=== PATIENT | male | born 1965 | race Caucasian/White ===

== ENCOUNTER → 2019-10-10 09:46 | Outpatient (CLI) | payer OTHER, SELFPAY ==
--- NOTE | 2019-10-10 | DI.US.S_ITS ---
PROCEDURE: US EXTREMITY NONVASC LOWER RT INDICATIONS: RIGHT KNEE BELLO CYST TECHNIQUE: Real-time scanning was performed of the right knee area, with image documentation. COMPARISON: None. FINDINGS: No source of pain foun, no Bello's cyst identified. IMPRESSION: Normal examination. Dictated by: Marc Galloway M.D. on 10/10/2019 at 11:02 Approved by: Marc Galloway M.D. on 10/10/2019 at 11:03
== END ==
PROVIDERS: PCP Nurse Practitioner Family; Referring Provider Nurse Practitioner Family; Visit Provider Nurse Practitioner Family
DX: M71.21 Synovial cyst of popliteal space [Baker], right knee (principal)
CPT/HCPCS: 76882

== ENCOUNTER 2020-05-01 08:30 | Outpatient (RCR) | payer OTHER, SELFPAY ==
--- NOTE | 2019-12-07 17:22 | OT.OP.EVAL ---
Visit Care Team Role Provider Type DESMOND Burnett Primary Care Provider Non-Staff Specialty: Medical Address: [address] [facility], [address], [place], [address] Email: Fabrice Becerra MD Attending Provider Non-Staff Referring Provider Specialty: Medical Address: [address] [place] [address], [id number] Email: Occupational Therapy Initial Evaluation OT Outpatient Adult Evaluation Start: 12/07/19 12:27 Freq: Status: Active Protocol: Document 12/07/19 16:51 AMS (Rec: 12/07/19 17:21 AMS [id number]) General Information Visit Start Time 12:30 Visit Stop Time 13:15 Total Visit Minutes 45 Visit Number 07/17 Plan of Care Dates 12/07/19-02/29/20 Insurance Information Workers Compensation Treatment Setting Outpatient Care Note Type Initial Evaluation Referring Physician Fabrice Becerra MD Reason for Referral L middle finger injury Identification Confirmed Yes Therapy Pain Assessment Pain Present Pain Reported Left Finger Scale Used 3-7 Goals Objective Measurements Pain-free goniometer measurements of L 3rd digit: 0 -80 AROM MCPJ; 0-90 PROM MCPJ; 0-5 AROM MCPJ; 0-10 PROM MCPJ ; 0-67 AROM PIPJ; 0-80 PROM PIPJ; 0-60 AROM DIPJ. -25 degrees flex at L 3rd DIPJ at rest; -10 degrees flex w/ PROM . Dynamometer II General Medical Practitioner Strength : Avg 55.33# of force w/ L escrow officer (> 1 SD below the mean); avg 67.67# of force w/ R escrow officer (> 1 SD below the mean). 3 trials were performed. Norms for 55-59 y.o. males = 101.1 + /- 26.7 # of force R escrow officer; 83. 2 +/- 23.4 # of force L escrow officer). Pain Assessment Grid completed and was placed in paper chart. Treatment Education re: use of heat prior to execution of ROM exercises. Instructed in ROM exercises. Short Term Goals 1. Omari will present with increased ability to engage in meaningful activities with active incorporation of the left third digit, as evidenced by indication of 2 or less out of 10 on the Pain Assessment Grid. 2. 0-80 degrees active flex at PIP joint of L 3rd digit. 3. 0-90 degrees active flex at MCP joint of L 3rd digit. Reel Operator Goals 1. Omari will be modified independent with execution of left third digit HEP utilizing provided written and visual instructions from therapist. Assessment/Plan Treatment Assessment Patient is a 54 year-old male referred to outpatient OT for L middle finger injury. Omari is R hand dominant; however, reportedly has relied more on his L hand secondary to R ulnar nerve injury that occurred while he was serving in [employer] 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 PMH: significant for dislocation of L 3rd digit; failed response to x 2 corticosteroid injections for treatment of L 3rd digit trigger finger, thus, surgery was performed. (-) treatment following surgery. Patient goals: increase strength of the L hand/L 3rd digit; reduce pain/discomfort; increase ability to complete heavy work tasks with the left hand with active incorporation of the L 3rd digit. Evaluation findings: Decreased success and ability to engage in meaningful activities with active incorporation of the L 3rd digit; L 3rd digit pain; impaired ROM of the L 3rd digit; decreased bilateral escrow officer strength. Outpatient OT is recommended to address these areas in order to maximize the patient' s ability to successfully engage in meaningful activities with active incorporation of the left 3rd digit/left hand. Comment 12 weeks Treatment Frequency Once a Week Therapeutic Contents Active Range of Motion, Adaptive Equipment Education, Client Education,Home Exercise Program,Joint Protection, Manual Therapy,Education, Neurodevelopment Treatment, Neuromuscular Re-Education, Self-Care,Splinting,Stretching /Flexibility Activities, Therapeutic Activities, Therapeutic Exercises, Modalities Types of Modalities Contrast Bath,E-Stim, Functional Stimulation (FES), Ice Massage,Ultrasound Additional Types of Modalities Heat/Paraffin bath Patient Instruction Home Exercise Program,Plan of Care,Questions/Concerns
--- NOTE | 2019-12-14 10:25 | OT.OP.TRT ---
Visit Care Team Role Provider Type DESMOND Burnett Primary Care Provider Non-Staff Specialty: Medical Address: [address] [facility], [address], [place], [address] Email: Fabrice Becerra MD Attending Provider Non-Staff Referring Provider Specialty: Medical Address: [address] [place] [address] [address], [place], [address] Email: Occupational Therapy Treatment Note OT Outpatient Treatment Note - Adult Start: 12/07/19 12:27 Freq: Status: Active Protocol: Document 12/14/19 10:14 AMS (Rec: 12/14/19 10:25 AMS [id number]) OT Outpatient Adult Treatment Note Session Time Visit Start Time 08:30 Visit Stop Time 09:15 Total Visit Minutes 45 Visit Information Visit Number 08/17 Plan of Care Dates 12/07/19-02/29/20 Setting Treatment Setting Outpatient Care Visit Type Note Type Treatment Note General Information General Information Patient is a 54 year-old male referred to outpatient OT for L middle finger injury. Omari is R hand dominant; however, reportedly has relied more on his L hand secondary to R ulnar nerve injury that occurred while he was serving in [employer]. 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 PMH: significant for dislocation of L 3rd digit; failed response to x 2 corticosteroid injections for treatment of L 3rd digit trigger finger, thus, surgery was performed. (-) treatment following surgery. - Subjective Identification Type Name Identification Reconciled With Medical Record Observations Patient seen 1:1 following CDC guidelines/recommendations. It got sore with the long drive over here. I feel like my coordination is improving per Omari. (+) compliance w/ use of heat which is helping in the morning. No locking occurring; click noted in palm when returning to neutral/ext w/ glides at middle finger. Chief Complaint(s) Restricts - Objective Objective Measurements Please refer to below for progress towards established goals. Short Term Goals 1. Omari will present with increased ability to engage in meaningful activities with active incorporation of the left third digit, as evidenced by indication of 2 or less out of 10 on the Pain Assessment Grid. 2. 0-80 degrees active flex at PIP joint of L 3rd digit. 3. 0-90 degrees active flex at MCP joint of L 3rd digit. Production Clerk Goals 1. Omari will be modified independent with execution of left third digit HEP utilizing provided written and visual instructions from therapist. - Treatment 2 Descriptor Manual/scar tissue massage to L palm. Gentle joint mobs of 3rd digit. 1 Descriptor Ultrasound. 20% duty cycle. 2. 0 w/cm2 to volar palm surface L hand to address inflammation /swelling. Skin intact pre- and post- treatment. Patient denied exacerbation/pain symptoms. Exercises 1 Descriptor HEP/POC. Reviewed tendon gliding exercises and importance of returning to neutral position after execution of a glide (focus on inclusion of flat fist, in addition to other glides). Instructed in flat palm on table and awareness of compensatory strategies. Omari denied questions. - Assessment Patient Response to Treatment Good Rehab Potential Fair Assessment of Improvement Seen 1:1 following CDC recommendations. Diagnoses of L distal phalanx fracture; L mallet finger 12/03/18. Reported compliance w/ splint as per directed by attending physician. (+) compliance with HEP w/ report of improving coordination; 'clicking' noted however, no locking of finger into flexion and/or increase in pain symptoms. Will need to monitor. - Plan Therapy Recommendations Continue with Current Program, Advance per Rehabilitation Protocol
--- NOTE | 2019-12-19 12:09 | OT.OP.TRT ---
Visit Care Team Role Provider Type DESMOND Burnett Primary Care Provider Non-Staff Specialty: Medical Address: [address] [facility], [address], [place], [address] Email: Fabrice Becerra MD Attending Provider Non-Staff Referring Provider Specialty: Medical Address: [address] [place] [address], [place], [address] Email: Occupational Therapy Treatment Note OT Outpatient Treatment Note - Adult Start: 12/07/19 12:27 Freq: Status: Active Protocol: Document 12/19/19 12:01 AMS (Rec: 12/19/19 12:09 AMS [id number]) OT Outpatient Adult Treatment Note Session Time Visit Start Time 09:30 Visit Stop Time 10:20 Total Visit Minutes 50 Visit Information Visit Number 09/14 Plan of Care Dates 12/07/19-02/29/20 Setting Treatment Setting Outpatient Care Visit Type Note Type Treatment Note General Information General Information Patient is a 54 year-old male referred to outpatient OT for L middle finger injury. Omari is R hand dominant; however, reportedly has relied more on his L hand secondary to R ulnar nerve injury that occurred while he was serving in [employer]. 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 PMH: significant for dislocation of L 3rd digit; failed response to x 2 corticosteroid injections for treatment of L 3rd digit trigger finger, thus, surgery was performed. (-) treatment following surgery. - Subjective Identification Type Name Identification Reconciled With Medical Record Observations Patient seen 1:1 following CDC guidelines/recommendations. It is clicking less. I still get tired from doing the exercises that you have me doing. I still have a lot of pain in this joint right here per Omari in (3rd MCP joint). I am having a really hard time with this right knee. Chief Complaint(s) Restricts Patient/Caregiver Compliance with Home Good Exercise Program - Objective Objective Measurements Please refer to below for progress towards established goals. Short Term Goals 1. Omari will present with increased ability to engage in meaningful activities with active incorporation of the left third digit, as evidenced by indication of 2 or less out of 10 on the Pain Assessment Grid. 2. 0-80 degrees active flex at PIP joint of L 3rd digit. 3. 0-90 degrees active flex at MCP joint of L 3rd digit. Assisted Goals 1. Omari will be modified independent with execution of left third digit HEP utilizing provided written and visual instructions from therapist. - Treatment 2 Descriptor Manual/scar tissue massage to L palm. Gentle joint mobs of 3rd digit. 1 Descriptor Ultrasound. 20% duty cycle. 2. 0 w/cm2 to volar surface L hand to address inflammation/ swelling x 8 min. Repeated for volar surface of distal phalanx. Skin intact pre- and post- treatment. Patient denied exacerbation/pain symptoms. Exercises 1 Descriptor HEP/POC. Reviewed tendon gliding exercises. Instructed in wall stretch w/ palm flat on wall w/ wrist/digits in extension, forearm pronated, elbow at end range of extension, and at shoulder height. Education re: monitoring positioning of hands at rest given tendency of 2nd digit to adduct towards 3rd digit; instructed in gentle stretch of 3rd digit radially, as well as to support extension at MCP joint . Omari denied questions. - Assessment Patient Response to Treatment Good Rehab Potential Fair Assessment of Improvement Seen 1:1 following CDC recommendations. Reduction of clicking noted in palm of hand ; still c/o fatigue of the hand w/ current exercises. Continued c/o pain/discomfort in MCP joint and in distal phalance/DIP joint. Advanced HEP and additional education was completed re: joint protection (positioning to monitor). Recommend following- up w/ PCP re: R knee pain. Recommend repeating ROM measurements at time of next session. - Plan Therapy Recommendations Continue with Current Program, Advance per Rehabilitation Protocol Suggested Referrals Primary Care Physician, Physical Therapy Other Referrals Refer back to PCP re: R knee concerns when walking w/
--- NOTE | 2019-12-26 16:36 | OT.OP.TRT ---
Visit Care Team Role Provider Type DESMOND Burnett Primary Care Provider Non-Staff Specialty: Medical Address: [address] [facility], [address], [place], [address] Email: Fabrice Becerra MD Attending Provider Non-Staff Referring Provider Specialty: Medical Address: [address] [place] [address], [place], [address] Email: Occupational Therapy Treatment Note OT Outpatient Treatment Note - Adult Start: 12/07/19 12:27 Freq: Status: Active Protocol: Document 12/26/19 16:18 AMS (Rec: 12/26/19 16:36 AMS [id number]) OT Outpatient Adult Treatment Note Session Time Visit Start Time 09:30 Visit Stop Time 10:15 Total Visit Minutes 50 Visit Information Visit Number 10/15 Plan of Care Dates 12/07/19-02/29/20 Setting Treatment Setting Outpatient Care Visit Type Note Type Treatment Note General Information General Information Patient is a 54 year-old male referred to outpatient OT for L middle finger injury. Omari is R hand dominant; however, reportedly has relied more on his L hand secondary to R ulnar nerve injury that occurred while he was serving in [employer]. 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 PMH: significant for dislocation of L 3rd digit; failed response to x 2 corticosteroid injections for treatment of L 3rd digit trigger finger, thus, surgery was performed. (-) treatment following surgery. - Subjective Identification Type Name Identification Reconciled With Medical Record Observations Patient seen 1:1 following CDC guidelines/recommendations. I have to get my blood work done after this at [facility]. I know we have been focusing on range of motion. What sorts of activities will be able to help strengthen? per Omari. Chief Complaint(s) Restricts Patient/Caregiver Compliance with Home Good Exercise Program - Objective Objective Measurements Please refer to below for progress towards established goals. 12/26/19= 0-73 degrees AROM PIPJ; 0-90 degrees PROM PIPJ (pain-free passive ROM) 0-85 degrees AROM MCPJ Short Term Goals 1. Omari will present with increased ability to engage in meaningful activities with active incorporation of the left third digit, as evidenced by indication of 2 or less out of 10 on the Pain Assessment Grid. 2. 0-80 degrees active flex at PIP joint of L 3rd digit. = 0-73 degrees AROM PIPJ 3. 0-90 degrees active flex at MCP joint of L 3rd digit. = 0-85 degrees AROM MCPJ Group Home Goals 1. Omari will be modified independent with execution of left third digit HEP utilizing provided written and visual instructions from therapist. = 25% met - Treatment 2 Descriptor Gentle joint mobs of 3rd digit . 1 Descriptor Ultrasound. 20% duty cycle. 2. 0 w/cm2 to volar surface L hand to address inflammation/ swelling x 8 min. Skin intact pre- and post- treatment. Patient denied exacerbation/ pain symptoms. Exercises 1 Descriptor HEP/POC. Instructed in strengthening of 3rd digit into extension w/ positioning of forearm in neutral and rubberbands slightly distal to MCP joint; instructed in functional strengthening options relative to cylindrical grasp/spherical grasp. Recommend use of wide width pen for visual feedback to support flexion of IP joints; provided medium firm green theraputty for home use with instruction for focus on flexion/motor planning of fist . Instructed in care of theraputty. Omari denied questions. - Assessment Patient Response to Treatment Good Rehab Potential Fair Assessment of Improvement Seen 1:1 following CDC recommendations. c/o fatigue of the hand w/ current exercises. Improved active ROM of MCP and PIP joints of L 3rd digit; evidenced by performance with goniometer measurements pre-treatment. Decreased stiffness noted w/ movement of L 3rd digit radially. Advanced HEP. Recommend incorporating additional functional strengthening options as tolerated based on feedback w/ current advancements. Home Exercise Program Please refer to treatment section of note for specific details. - Plan Therapy Recommendations Continue with Current Program, Advance per Rehabilitation Protocol
--- NOTE | 2020-01-09 15:49 | OT.OP.TRT ---
Visit Care Team Role Provider Type DESMOND Burnett Primary Care Provider Non-Staff Specialty: Medical Address: [address] [facility], [address], [place], [address] Email: Fabrice Becerra MD Attending Provider Non-Staff Referring Provider Specialty: Medical Address: [address] [place] [address], [place], [address] Email: Occupational Therapy Treatment Note OT Outpatient Treatment Note - Adult Start: 12/07/19 12:27 Freq: Status: Active Protocol: Document 01/09/20 15:37 AMS (Rec: 01/09/20 15:49 AMS [id number]) OT Outpatient Adult Treatment Note Session Time Visit Start Time 09:30 Visit Stop Time 10:18 Total Visit Minutes 48 Visit Information Visit Number 11/14 Plan of Care Dates 12/07/19-02/29/20 Setting Treatment Setting Outpatient Care Visit Type Note Type Treatment Note General Information General Information Patient is a 54 year-old male referred to outpatient OT for L middle finger injury. Omari is R hand dominant; however, reportedly has relied more on his L hand secondary to R ulnar nerve injury that occurred while he was serving in [employer]. 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 PMH: significant for dislocation of L 3rd digit; failed response to x 2 corticosteroid injections for treatment of L 3rd digit trigger finger, thus, surgery was performed. (-) treatment following surgery. - Subjective Identification Type Name Identification Reconciled With Medical Record Observations Patient seen 1:1 following CDC guidelines/recommendations. This finger still gets tired. I have noticed that these fingers start to loosen their fountain operator on the steering wheel after I have been driving awhile per Omari. Chief Complaint(s) Restricts Patient/Caregiver Compliance with Home Good Exercise Program - Objective Objective Measurements Please refer to below for progress towards established goals. 12/26/19= 0-73 degrees AROM PIPJ; 0-90 degrees PROM PIPJ (pain-free passive ROM) 0-85 degrees AROM MCPJ Short Term Goals 1. Omari will present with increased ability to engage in meaningful activities with active incorporation of the left third digit, as evidenced by indication of 2 or less out of 10 on the Pain Assessment Grid. 2. 0-80 degrees active flex at PIP joint of L 3rd digit. = 0-73 degrees AROM PIPJ 3. 0-90 degrees active flex at MCP joint of L 3rd digit. = 0-85 degrees AROM MCPJ Ash Worker Goals 1. Omari will be modified independent with execution of left third digit HEP utilizing provided written and visual instructions from therapist. = 25% met - Treatment 2 Descriptor Gentle joint mobs of 3rd digit . 1 Descriptor Ultrasound. 20% duty cycle. 2. 0 w/cm2 to volar surface L hand to address inflammation/ swelling x 8 min. Skin intact pre- and post- treatment. Patient denied exacerbation/ pain symptoms. Exercises 4 Descriptor Grasp strengthening. 4.4# spherical ball. Grasp and release w/ wrist in ext. 1 x 10. 3 Descriptor Digit strengthening. Isometric hold x 5 sec. Rubberband positioned proximal to PIPJ. 1 x 10. 2nd/3rd digit abd. Rubberband positioned proximal to PIPJ. 1 x 10 each. 2 Descriptor Neuroretraining. Positioning of the 3rd digit of the L hand w/ grasping of objects. 1 Descriptor HEP/POC. Instructed in strengthening away from midline of 2nd and 3rd digits w/ use of rubberbands. Neuro retraining re: positioning of 2nd and 3rd digits during grasping of various objects. Recommended consideration of weighted ball for home use to increase demands on sustained fountain operator if current can/weight becomes too easy; identified w / patient use of 4.4# as best weight for current use. Discussed building up of width of steering wheel as consideration as joint protection principle w/ upcoming driving trip. Oamri denied questions. - Assessment Assessment of Improvement Seen 1:1 following CDC recommendations. c/o hand fatigue. Advanced HEP on this treatment date. Instruction of neuro retraining for fountain operator, as well as strengthening of digits away from ulnar pattern . Discussed joint protection option with use of steering wheel/prolonged fountain operator. Increased focus on strengthening on this treatment date. Will need to monitor symptoms. Recommend incorporating additional functional strengthening options as tolerated based on feedback w/ current advancements. Home Exercise Program Please refer to treatment section of note for specific details. - Plan Therapy Recommendations Continue with Current Program, Advance per Rehabilitation Protocol
--- NOTE | 2020-01-30 10:30 | OT.OP.TRT ---
Visit Care Team Role Provider Type DESMOND Burnett Primary Care Provider Non-Staff Specialty: Medical Address: [address] [facility], [address], [place], [address] Email: Fabrice Becerra MD Attending Provider Non-Staff Referring Provider Specialty: Medical Address: [address] [place] [address], [place], [address] Email: Occupational Therapy Treatment Note OT Outpatient Treatment Note - Adult Start: 12/07/19 12:27 Freq: Status: Active Protocol: Document 01/30/20 10:21 AMS (Rec: 01/30/20 10:30 AMS [id number]) OT Outpatient Adult Treatment Note Session Time Visit Start Time 09:30 Visit Stop Time 10:15 Total Visit Minutes 45 Visit Information Visit Number 12/15 Plan of Care Dates 12/07/19-02/29/20 Setting Treatment Setting Outpatient Care Visit Type Note Type Treatment Note General Information General Information Patient is a 54 year-old male referred to outpatient OT for L middle finger injury. Omari is R hand dominant; however, reportedly has relied more on his L hand secondary to R ulnar nerve injury that occurred while he was serving in [employer]. 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 PMH: significant for dislocation of L 3rd digit; failed response to x 2 corticosteroid injections for treatment of L 3rd digit trigger finger, thus, surgery was performed. (-) treatment following surgery. - Subjective Identification Type Name Identification Reconciled With Medical Record Observations I am seeing my doctor tomorrow. I will get a new referral. Where do I need to bring it? per Omari. I got the weighted ball for use at home. I am still having pain in this joint per Omari relative to the 3rd MCP. Patient/Caregiver Compliance with Home Good Exercise Program - Objective Objective Measurements Please refer to below for progress towards established goals. 12/26/19= 0-73 degrees AROM PIPJ; 0-90 degrees PROM PIPJ (pain-free passive ROM) 0-85 degrees AROM MCPJ Short Term Goals 1. Omari will present with increased ability to engage in meaningful activities with active incorporation of the left third digit, as evidenced by indication of 2 or less out of 10 on the Pain Assessment Grid. 2. 0-80 degrees active flex at PIP joint of L 3rd digit. = 0-73 degrees AROM PIPJ 3. 0-90 degrees active flex at MCP joint of L 3rd digit. = 0-85 degrees AROM MCPJ University Demonstrator Goals 1. Omari will be modified independent with execution of left third digit HEP utilizing provided written and visual instructions from therapist. = 25% met - Treatment 2 Descriptor Gentle joint mobs of 3rd digit . 1 Descriptor Ultrasound. 20% duty cycle. 2. 0 w/cm2 to volar surface L hand to address inflammation/ swelling x 8 min. Skin intact pre- and post- treatment. Patient denied exacerbation/ pain symptoms. Exercises 4 Descriptor Grasp strengthening. 4.4# spherical ball. Grasp and release w/ wrist in ext. 2 x 10. 6# DB attached to dowel. x 7 total reps (DB at bottom of rope --> to top of rope). 3 Descriptor Digit strengthening. 3rd digit abd. 2 rubberbands positioned proximal to PIPJ. 1 x 10. 2 Descriptor Neuroretraining. Positioning of the 3rd digit of the L hand w/ grasping of objects. Right hand assist to facilitate flexion of 3rd digit with other digits. 1 Descriptor HEP/POC. Reviewed building up of width of steering wheel as consideration as joint protection principle w/ upcoming driving trip. Recommended consideration of anti vibration gloves given change of sensation encountered w/ weed eater use for 10 min. Discussed replicating wood dowel w/ rope for working on supervisor unloading strength/ sustained supervisor unloading. Omari denied questions. - Assessment Assessment of Improvement c/o continued pain in 3rd MCP joint of the left hand; denied exacerbation of symptoms from strengthening exercises; recommended following-up w/ referring physician. Advanced HEP on this treatment date. Need for neuro retraining of the 3rd digit w/ grasp; 3rd digit moving into flexion delayed compared to other digits. Recommend incorporating additional functional strengthening options as tolerated. Home Exercise Program Please refer to treatment section of note for specific details. - Plan Therapy Recommendations Continue with Current Program, Advance per Rehabilitation Protocol
--- NOTE | 2020-02-06 14:14 | OT.OP.TRT ---
Visit Care Team Role Provider Type DESMOND Burnett Primary Care Provider Non-Staff Specialty: Medical Address: [address] [facility], [id number], [place], [address] Email: Fabrice Becerra MD Attending Provider Non-Staff Referring Provider Specialty: Medical Address: [address] [place] [address], [place], [address] Email: Occupational Therapy Treatment Note OT Outpatient Treatment Note - Adult Start: 12/07/19 12:27 Freq: Status: Active Protocol: Document 02/06/20 13:59 AMS (Rec: 02/06/20 14:14 AMS [id number]) OT Outpatient Adult Treatment Note Session Time Visit Start Time 09:30 Visit Stop Time 10:15 Total Visit Minutes 45 Visit Information Visit Number 01/14 Plan of Care Dates 12/07/19-02/29/20 Setting Treatment Setting Outpatient Care Visit Type Note Type Treatment Note General Information General Information Patient is a 54 year-old male referred to outpatient OT for L middle finger injury. Omari is R hand dominant; however, reportedly has relied more on his L hand secondary to R ulnar nerve injury that occurred while he was serving in [employer]. 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 PMH: significant for dislocation of L 3rd digit; failed response to x 2 corticosteroid injections for treatment of L 3rd digit trigger finger, thus, surgery was performed. (-) treatment following surgery. - Subjective Identification Type Name Identification Reconciled With Medical Record Observations We had 4 trees that needed to be felled per Omari. I worked with my son. I used my chainsaw for an hour with this hand positioned on the top. I think it is the chainsaw that I did it. Ever since then this joint has been hurting [ re: 3rd MCP joint] per Omari. I haven't been using the ball or the other things because of the pain. I have been doing these exercises per Omari in re: ROM. Patient/Caregiver Compliance with Home Good Exercise Program - Objective Objective Measurements Please refer to below for progress towards established goals. 12/26/19= 0-73 degrees AROM PIPJ; 0-90 degrees PROM PIPJ (pain-free passive ROM) 0-85 degrees AROM MCPJ Short Term Goals 1. Omari will present with increased ability to engage in meaningful activities with active incorporation of the left third digit, as evidenced by indication of 2 or less out of 10 on the Pain Assessment Grid. 2. 0-80 degrees active flex at PIP joint of L 3rd digit. = 0-73 degrees AROM PIPJ 3. 0-90 degrees active flex at MCP joint of L 3rd digit. = 0-85 degrees AROM MCPJ Hedge Trimmer Goals 1. Omari will be modified independent with execution of left third digit HEP utilizing provided written and visual instructions from therapist. = 50% met - Treatment 2 Descriptor Gentle joint mobs of 3rd digit . 1 Descriptor Ultrasound. 20% duty cycle. 2. 0 w/cm2 to volar surface L hand to address inflammation/ swelling x 10 min. Skin intact pre- and post- treatment. Patient denied exacerbation/ pain symptoms. Exercises 4 Descriptor Grasp strengthening. 4.4# spherical ball. Grasp and release w/ wrist in ext. 2 x 10. 6# DB attached to dowel. x 7 total reps (DB at bottom of rope --> to top of rope). 3 Descriptor Digit strengthening. 3rd digit abd. 2 rubberbands positioned proximal to PIPJ. 1 x 10. 2 Descriptor Neuroretraining. Positioning of the 3rd digit of the L hand w/ grasping of objects. Right hand assist to facilitate flexion of 3rd digit with other digits. 1 Descriptor HEP/POC. Discussed use of heat to assist with ROM/ flexibility to maintain available range of motion. Discussed potential use of ice massage and/or contrast baths to address any swelling that may be present in the joint d/ t outdoor tree maintenance. Provided firm blue theraputty for gross grasp strength training; instructed to avoid exercises with pain. Recommended use of green theraputty for abd strengthening of 2nd and 3rd digits of the left hand and 3rd digit extension strengthening versus use of rubberbands given progress pre -tree maintenance that had been made. Recommended focusing on neuro retraining and ROM at this time. Discussed joint protection principles of changing grasp pattern/activities with outdoor lawn maintenance in future. Omari denied questions . - Assessment Assessment of Improvement Referring physician authorized additional visits. Exacerbation of pain in 3rd digit s/p recent use of continuous use of personal chainsaw for hour. Poor tolerance for strengthening exercises on this date. Focus of treatment session on conservative measures for pain management and maintaining available ROM w/ focus on neuro retraining. Education was also provided re: joint protection re: prolonged static grasp patterns w/ recommendation to alt tasks w/ differing grasp patterns. Recommend incorporating additional functional strengthening options as tolerated. Next treatment session will depend on pain presentation. Home Exercise Program Please refer to treatment section of note for specific details. - Plan Therapy Recommendations Continue with Current Program, Advance per Rehabilitation Protocol
--- NOTE | 2020-02-13 10:28 | OT.OP.TRT ---
Visit Care Team Role Provider Type DESMOND Burnett Primary Care Provider Non-Staff Specialty: Medical Address: [address] [facility], [address], [place], [place], Email: Fabrice Becerra MD Attending Provider Non-Staff Referring Provider Specialty: Medical Address: [address] [place] [address], [place], [address] Email: Occupational Therapy Treatment Note OT Outpatient Treatment Note - Adult Start: 12/07/19 12:27 Freq: Status: Active Protocol: Document 02/13/20 10:15 AMS (Rec: 02/13/20 10:28 AMS [id number]) OT Outpatient Adult Treatment Note Session Time Visit Start Time 09:30 Visit Stop Time 10:00 Total Visit Minutes 30 Visit Information Visit Number 02/14 Plan of Care Dates 12/07/19-02/29/20 Setting Treatment Setting Outpatient Care Visit Type Note Type Treatment Note General Information General Information Patient is a 54 year-old male referred to outpatient OT for L middle finger injury. Omari is R hand dominant; however, reportedly has relied more on his L hand secondary to R ulnar nerve injury that occurred while he was serving in [employer]. 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 PMH: significant for dislocation of L 3rd digit; failed response to x 2 corticosteroid injections for treatment of L 3rd digit trigger finger, thus, surgery was performed. (-) treatment following surgery. - Subjective Identification Type Name Identification Reconciled With Medical Record Observations Treatment session was shortened d/t Omari has an appointment scheduled at 1020 w/ orthopedic surgeon for R knee. I feel like that second finger seems to get in the way . The one thing that continues to bother me is the pain per Omari. Patient/Caregiver Compliance with Home Good Exercise Program - Objective Objective Measurements Please refer to below for progress towards established goals. 12/26/19= 0-73 degrees AROM PIPJ; 0-90 degrees PROM PIPJ (pain-free passive ROM) 0-85 degrees AROM MCPJ Short Term Goals 1. Omari will present with increased ability to engage in meaningful activities with active incorporation of the left third digit, as evidenced by indication of 2 or less out of 10 on the Pain Assessment Grid. 2. 0-80 degrees active flex at PIP joint of L 3rd digit. = 0-73 degrees AROM PIPJ 3. 0-90 degrees active flex at MCP joint of L 3rd digit. = 0-85 degrees AROM MCPJ Prison Goals 1. Omari will be modified independent with execution of left third digit HEP utilizing provided written and visual instructions from therapist. = 50% met - Treatment 2 Descriptor Gentle joint mobs of 3rd digit . 1 Descriptor Ultrasound. 20% duty cycle. 2. 0 w/cm2 to volar surface L hand to address inflammation/ swelling x 10 min. Skin intact pre- and post- treatment. Exercises 2 Descriptor Neuroretraining. Positioning of the 3rd digit of the L hand w/ grasping of objects. Trialed kinesiotaping/use of velcro hook/loop of 2nd and 3rd digits together to discourage 'piggy backing of 3rd digit on 2nd digit'. 1 Descriptor HEP/POC. Main concern is pain/ discomfort that continues in 3rd MCP joint. Initiated use of kinesiotape/strapping of 2nd and 3rd digits of the R hand to support alignment w/ neuro re-training. Improvements has been made since initiating neuro re- training; however, will continue to observe this motor pattern when patient is not focused/spontaneous fisting of hand. Recommended utilizing with exercises/activities as able. May need to consider additional options (off-the- shelf, etc). Omari to monitor number of repetitions prior to onset of pain/exacerbation of symptoms. Omari denied questions. - Assessment Assessment of Improvement Patient resported that pain resolved since time of last session likely d/t rest. However, pain continues to be reportedly the most limiting factor for Omari. Improving motor planning of the 3rd digit noted; however, without focused concentration piggy backing as been observed intermittently. Trialed different techniques to support neuro retraining. Will examine number of repetitions until fatigue is reached in the home. Recommend incorporating additional grasping endurance tasks in treatment as tolerated. Home Exercise Program Please refer to treatment section of note for specific details. - Plan Therapy Recommendations Continue with Current Program, Advance per Rehabilitation Protocol
--- NOTE | 2020-02-20 11:39 | OT.OP.TRT ---
Visit Care Team Role Provider Type DESMOND Burnett Primary Care Provider Non-Staff Specialty: Medical Address: [address] [facility], [address], [place], [address] Email: Fabrice Becerra MD Attending Provider Non-Staff Referring Provider Specialty: Medical Address: [address] [place] [address], [place], [address] Email: Occupational Therapy Treatment Note OT Outpatient Treatment Note - Adult Start: 12/07/19 12:27 Freq: Status: Active Protocol: Document 02/20/20 10:24 AMS (Rec: 02/20/20 10:30 AMS [id number]) OT Outpatient Adult Treatment Note Session Time Visit Start Time 09:30 Visit Stop Time 10:15 Total Visit Minutes 45 Visit Information Visit Number 03/17 Plan of Care Dates 12/07/19-02/29/20 Setting Treatment Setting Outpatient Care Visit Type Note Type Treatment Note General Information General Information Patient is a 54 year-old male referred to outpatient OT for L middle finger injury. Omari is R hand dominant; however, reportedly has relied more on his L hand secondary to R ulnar nerve injury that occurred while he was serving in [employer]. 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 PMH: significant for dislocation of L 3rd digit; failed response to x 2 corticosteroid injections for treatment of L 3rd digit trigger finger, thus, surgery was performed. (-) treatment following surgery. - Subjective Identification Type Name Identification Reconciled With Medical Record Observations This hand was sore after pulling the crab pots and driving the boat. The boat's steering wheel is stiffer to turn than a regular steering wheel. I am taking an anti inflammatory still on a daily basis per Omari. The chain saw was definitely the worst pain per Omari. Patient/Caregiver Compliance with Home Good Exercise Program - Objective Objective Measurements Please refer to below for progress towards established goals. 02/20/20= L 3rd digit = 0-73 degrees AROM PIPJ ( increased AROM w/ MCP in flexion); 0-90 degrees AROM MCPJ. 12/26/19= 0-73 degrees AROM PIPJ; 0-90 degrees PROM PIPJ (pain-free passive ROM) 0-85 degrees AROM MCPJ Short Term Goals 1. Omari will present with increased ability to engage in meaningful activities with active incorporation of the left third digit, as evidenced by indication of 2 or less out of 10 on the Pain Assessment Grid. 2. 0-80 degrees active flex at PIP joint of L 3rd digit. = 0-73 degrees AROM PIPJ GOALS MET 0-90 degrees active flex at MCP joint of L 3rd digit. *MET 02/20/20 = 0-90 degrees Coin Machine Collector Supervisor Goals 1. Omari will be modified independent with execution of left third digit HEP utilizing provided written and visual instructions from therapist. = 50% met - Treatment 2 Descriptor Gentle joint mobs of 3rd digit . Facilitation of flexion of PIPU. 1 Descriptor Ultrasound. 20% duty cycle. 2. 0 w/cm2 to volar surface L hand to address inflammation/ swelling x 10 min. Skin intact pre- and post- treatment. Exercises 4 Descriptor Grasp strengthening. 5# DB attached to dowel. x 4 reps w/ forearm pronated; x 4 reps w/ forearm supinated. 2 Descriptor Neuroretraining. 1 Descriptor HEP/POC. Instructed in joint blocking exercise to promote neutral position of MCP w/ active PIP and DIP joint flexion of the 3rd digit. d/t no c/o w/ weighted ball, recommended utilizing available weighted rope to for strengthening of grasp/ improving upon activity tolerance w/ increasing resistance. Recommended utilizing weight/resistance > than that of weighted ball. Omari to monitor length of time until encountering fatigue w/ pulling in crabbing pots. Omari denied questions. - Assessment Assessment of Improvement Improved AROM of L 3rd digit of the MCPJ; met short term goal in this area. Unchanging AROM of the PIPJ w/ MPJ in extension; increased focus on exercises to promote active flexion at the PIP joint of the 3rd digit. Improving neuro retraining/decreased piggy backing of the 2nd digit w/ flexion. However, w/ fatigue piggy backing noted. Decreased endurance/fatigue w/ prolonged grasping activities, incorporation of the 3rd digit. c/o stiffness; main concern verbalized is pain and despite daily use of antiinflammatory medication. Report of no fatigue w/ use of weighted spherical ball; thus , will need to explore additional strengthening options. Recommend incorporating additional grasping endurance tasks in treatment as tolerated; will need to look at activities > 5 minutes in length but less than 2 hours given current reports. Home Exercise Program Please refer to treatment section of note for specific details. - Plan Therapy Recommendations Continue with Current Program, Advance per Rehabilitation Protocol
--- NOTE | 2020-03-13 15:30 | OT.OPPN ---
Current Diagnoses Trigger finger, left middle finger (03/13/20) Unspecified sprain of left middle finger, initial encounter (03/13/20) Occupational Therapy Inpatient Evaluation/Re-Eval OT Outpatient Adult Evaluation Start: 12/07/19 12:27 Freq: Status: Active Protocol: Document 12/07/19 16:51 AMS (Rec: 12/07/19 17:21 AMS [id number]) General Information Session Time Visit Start Time 12:30 Visit Stop Time 13:15 Total Visit Minutes 45 Visit Information Visit Number 07/17 Plan of Care Dates 12/07/19-02/29/20 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 -25 degrees flex at L 3rd DIPJ at rest; -10 degrees flex w/ PROM . Dynamometer II Personnel Technician Strength : Avg 55.33# of force w/ L supervisor grounds (> 1 SD below the mean); avg 67.67# of force w/ R supervisor grounds (> 1 SD below the mean). 3 trials were performed. Norms for 55-59 y.o. males = 101.1 + /- 26.7 # of force R supervisor grounds; 83. 2 +/- 23.4 # of force L supervisor grounds). Pain Assessment Grid completed and was placed in paper chart. Treatment Treatment Education re: use of heat prior to execution of ROM exercises. Instructed in ROM exercises. Short Term Goals Short Term Goals 1. Omari will present with increased ability to engage in meaningful activities with active incorporation of the left third digit, as evidenced by indication of 2 or less out of 10 on the Pain Assessment Grid. 2. 0-80 degrees active flex at PIP joint of L 3rd digit. 3. 0-90 degrees active flex at MCP joint of L 3rd digit. Jail Goals Central Office Mechanic Goals 1. Omari will be modified independent with execution of left third digit HEP utilizing provided written and visual instructions from therapist. Assessment/Plan Assessment Treatment Assessment Patient is a 54 year-old male referred to outpatient OT for L middle finger injury. Omari is R hand dominant; however, reportedly has relied more on his L hand secondary to R ulnar nerve injury that occurred while he was serving in [employer]. 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 PMH: significant for dislocation of L 3rd digit; failed response to x 2 corticosteroid injections for treatment of L 3rd digit trigger finger, thus, surgery was performed. (-) treatment following surgery. Patient goals: increase strength of the L hand/L 3rd digit; reduce pain/discomfort; increase ability to complete heavy work tasks with the left hand with active incorporation of the L 3rd digit. Evaluation findings: Decreased success and ability to engage in meaningful activities with active incorporation of the L 3rd digit; L 3rd digit pain; impaired ROM of the L 3rd digit; decreased bilateral supervisor grounds strength. Outpatient OT is recommended to address these areas in order to maximize the patient' s ability to successfully engage in meaningful activities with active incorporation of the left 3rd digit/left hand. Plan Comment 12 weeks Treatment Frequency Once a Week Therapeutic Contents Active Range of Motion, Adaptive Equipment Education, Client Education,Home Exercise Program,Joint Protection, Manual Therapy,Education, Neurodevelopment Treatment, Neuromuscular Re-Education, Self-Care,Splinting,Stretching /Flexibility Activities, Therapeutic Activities, Therapeutic Exercises, Modalities Types of Modalities Contrast Bath,E-Stim, Functional Stimulation (FES), Ice Massage,Ultrasound Additional Types of Modalities Heat/Paraffin bath Patient Instruction Home Exercise Program,Plan of Care,Questions/Concerns Sensory Assessment Sensory Profile2 Functional Wrist/Hand Scan Hand Side OT Outpatient Treatment Note - Adult Start: 12/07/19 12:27 Freq: Status: Active Protocol: Document 03/13/20 15:30 [facility] (Rec: 03/14/20 09:18 [facility] [id number]) OT Outpatient Adult Treatment Note Session Time Visit Start Time 08:30 Visit Stop Time 09:15 Total Visit Minutes 45 Visit Information Visit Number 04/16 Plan of Care Dates 02/29/20-05/23/20 Setting Treatment Setting Outpatient Care Visit Type Note Type Progress Note General Information General Information Patient is a 54 year-old male referred to outpatient OT for L middle finger injury. Omari is R hand dominant; however, reportedly has relied more on his L hand secondary to R ulnar nerve injury that occurred while he was serving in [employer]. 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 PMH: significant for dislocation of L 3rd digit; failed response to x 2 corticosteroid injections for treatment of L 3rd digit trigger finger, thus, surgery was performed. (-) treatment following surgery. - Subjective Identification Type Name Identification Reconciled With Medical Record Observations Omari completed Pain Assessment Grid; he indicated 3-7/8 range relative to dorsal DIP and MCP joints and volar proximal 3rd metacarpal and MCP and DIP joints. Increased pain/discomfort reported w/ extended use of the L hand w/ various tasks. Patient/Caregiver Compliance with Home Good Exercise Program - Objective Objective Measurements Please refer to below for progress towards established goals. 03/13/20= 0-80 degrees AROM PIPJ w/ MCP in neutral. = L 3rd digit = 0-73 degrees AROM PIPJ (increased AROM w/ MCP in flexion); 0-90 degrees AROM MCPJ. 12/26/19= 0-73 degrees AROM PIPJ; 0-90 degrees PROM PIPJ (pain-free passive ROM) 0-85 degrees AROM MCPJ Short Term Goals 1. Omari will present with increased ability to engage in meaningful activities with active incorporation of the left third digit, as evidenced by indication of 2 or less out of 10 on the Pain Assessment Grid. 03/13/20= 25% met 2. 0-90 degrees active flex at PIP joint of L 3rd digit. = GOAL UPGRADED 3. Omari will present with increased ability to maintain supervisor grounds on an object with inclusion of 3rd, 4th and 5th digits; this will be evidenced by Omari' ability to sustain grasp on arm bike hand x 8 minutes without complaints of pain/discomfort (shooting pain /discomfort w/ need to shake hand). 03/13/20= NEW GOAL GOALS MET 0-90 degrees active flex MCPJ L 3rd digit. *MET 02/20/20 = 0- 90 degrees 0-80 degrees active flex at PIP joint of L 3rd digit. * MET 03/13/20= 0-80 degrees active flex PIPJ L 3rd digit. Jail Goals 1. Omari will be modified independent with execution of left third digit HEP utilizing provided written and visual instructions from therapist. = 50% met - Treatment 2 Descriptor Gentle joint mobs of 3rd digit . Facilitation of flexion of PIPU. 1 Descriptor Ultrasound. 20% duty cycle. 2. 0 w/cm2 to volar surface L hand to address inflammation/ swelling x 10 min. Skin intact pre- and post- treatment. Exercises 4 Descriptor Grasp strengthening. 5# DB attached to dowel. x 4 reps w/ forearm pronated; x 4 reps w/ forearm supinated. 3 Descriptor Strengthening of digits/grasp. 4.4# spherical ball. Focus on grasp/release L hand w/ 3rd, 4th and 5th digits actively engaged. 2 x 10. 2 Descriptor Neuroretraining. 1 Descriptor HEP/POC. Instructed in joint blocking exercise to promote neutral position of MCP w/ active PIP and DIP joint flexion of the 3rd digit. d/t no c/o w/ weighted ball, recommended utilizing available weighted rope to for strengthening of grasp/ improving upon activity tolerance w/ increasing resistance. Recommended utilizing weight/resistance > than that of weighted ball. Omari to monitor length of time until encountering fatigue w/ pulling in crabbing pots. Omari denied questions. - Assessment Assessment of Improvement Omari has made progress over the last certification period relative to active range of motion of the L third digit; this is evidenced by Omari meeting short term goals in this area. Omari is also demonstrating improving neuro retraining w/ active engagement of 3rd digit w/ functional grasp patterns. Omari is demonstrating improving joint protection awareness and strengthening out of a ulnar pattern of the 2nd and 3rd digits. Omari however, continues to complain of pain/discomfort of the 3rd digit which limits his ability to maintain/sustain a grasp on objects for prolonged periods of time (e.g., pulling up crab pots, grasping of steering wheel). In treatment, Omari was able to maintain grasp of handle of UEB for 6 minutes prior to needing to 'shake' his hand d/ t pain/discomfort of the 3rd digit. 'Piggy backing' of 3rd digit on 2nd digit noted w/ fatigue as well w/ sustained grasp and/or increased use/ repetitions w/ hand. Omari was also observed to rely on 2nd digit w/ sustained grasps; thus, increased focus on strengthening of ulnar side of hand w/ HEP. Omari will be following up w/ new physician re: LNI claim on the . Continued outpatient OT is recommended at this time to maximize Omari' ability to engage in meaningful activities with active inclusion of the L hand; he continues to be limited by pain/discomfort. It has been recommended he follows-up w/ his physician given that education has been completed on conservative therapeutic measures to address pain/ discomfort and he reports actively utilizing these strategies. Home Exercise Program Please refer to treatment section of note for specific details. - Plan Therapy Recommendations Continue with Current Program, Advance per Rehabilitation Protocol Comment 12 weeks Comment 1-2 times per week Therapeutic Contents Active Range of Motion, Adaptive Equipment Education, Client Education,Cognitive Skills Development,Functional Activities,Home Exercise Program,Joint Protection, Manual Therapy,Education, Neurodevelopment Treatment, Neuromuscular Re-Education, Self-Care,Stretching/ Flexibility Activities, Therapeutic Activities, Therapeutic Exercises, Modalities,Sensory Re- education Types of Modalities Contrast Bath,E-Stim, Functional Stimulation (FES), Ice Massage,T.E.N. Stimulation ,TENS Placement/Application, Ultrasound Additional Types of Modalities Heat
--- NOTE | 2020-03-19 10:23 | OT.OP.TRT ---
Visit Care Team Role Provider Type DESMOND Burnett Primary Care Provider Non-Staff Specialty: Medical Address: [address] [facility], [address], [place], [address] Email: Fabrice Becerra MD Attending Provider Non-Staff Referring Provider Specialty: Medical Address: [address] [place] [address], [place], [address] Email: Occupational Therapy Treatment Note OT Outpatient Treatment Note - Adult Start: 12/07/19 12:27 Freq: Status: Active Protocol: Document 03/19/20 09:37 AMS (Rec: 03/19/20 10:23 AMS [id number]) OT Outpatient Adult Treatment Note Session Time Visit Start Time 08:30 Visit Stop Time 09:15 Total Visit Minutes 45 Visit Information Visit Number 11/14 Plan of Care Dates 02/29/20-05/23/20 Setting Treatment Setting Outpatient Care Visit Type Note Type Treatment Note General Information General Information Patient is a 54 year-old male referred to outpatient OT for L middle finger injury. Omari is R hand dominant; however, reportedly has relied more on his L hand secondary to R ulnar nerve injury that occurred while he was serving in [employer]. 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 PMH: significant for dislocation of L 3rd digit; failed response to x 2 corticosteroid injections for treatment of L 3rd digit trigger finger, thus, surgery was performed. (-) treatment following surgery. - Subjective Identification Type Name Identification Reconciled With Medical Record Patient/Caregiver Compliance with Home Good Exercise Program - Objective Objective Measurements Please refer to below for progress towards established goals. 03/13/20= 0-80 degrees AROM PIPJ w/ MCP in neutral. = L 3rd digit = 0-73 degrees AROM PIPJ (increased AROM w/ MCP in flexion); 0-90 degrees AROM MCPJ. 12/26/19= 0-73 degrees AROM PIPJ; 0-90 degrees PROM PIPJ (pain-free passive ROM) 0-85 degrees AROM MCPJ Short Term Goals 1. Omari will present with increased ability to engage in meaningful activities with active incorporation of the left third digit, as evidenced by indication of 2 or less out of 10 on the Pain Assessment Grid. 03/13/20= 25% met 2. 0-90 degrees active flex at PIP joint of L 3rd digit. = GOAL UPGRADED 3. Omari will present with increased ability to maintain objective c developer on an object with inclusion of 3rd, 4th and 5th digits; this will be evidenced by Omari' ability to sustain grasp on arm bike hand x 8 minutes without complaints of pain/discomfort (shooting pain /discomfort w/ need to shake hand). 03/19/20= 50% met; x 7 minutes GOALS MET 0-90 degrees active flex MCPJ L 3rd digit. *MET 02/20/20 = 0- 90 degrees 0-80 degrees active flex at PIP joint of L 3rd digit. * MET 03/13/20= 0-80 degrees active flex PIPJ L 3rd digit. Group Home Goals 1. Omari will be modified independent with execution of left third digit HEP utilizing provided written and visual instructions from therapist. = 50% met - Treatment 2 Descriptor Gentle joint mobs of 3rd digit . Facilitation of flexion of PIPU. 1 Descriptor Ultrasound. 20% duty cycle. 2. 0 w/cm2 to volar surface L hand to address inflammation/ swelling x 10 min. Skin intact pre- and post- treatment. Exercises 3 Descriptor Strengthening of digits/grasp. 4.4# spherical ball. Focus on grasp/release L hand w/ 3rd, 4th and 5th digits actively engaged. 2 x 10. 2# longitudinal weight/velcro weights. Sustained objective c developer 3 sec. 2 x 5 sec. 3rd, 4th, and 5th digits L hand. 4.4# spherical ball. Toss & catch L hand. 2 x 10 seated. 1.5# digiflex. 1 x 5. Discomfort of 3rd digit; thus, focus on 4th and 5th digits of L hand. 2 Descriptor Neuroretraining. 1 Descriptor HEP/POC. 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 Inquired about availability of velcro weight to support carry-over of sustained grasp (tighter objective c developer than isolated digits w/ spherical ball). Instructed in flexor stretch utilizing wall ; discussed options including elbow flexion/changing of height of position of palm/ hand on wall. Omari denied questions. - Assessment Assessment of Improvement Omari continues to complain of pain/discomfort of the 3rd digit which limits his ability to maintain/sustain a grasp on objects for prolonged periods of time (e.g., pulling up crab pots, grasping of steering wheel). Upgraded therapeutic exercises/ activities completed in treatment session. (+) activity modification w/ support of his . (+) carry -over of home recommendations. Continued outpatient OT is recommended at this time to maximize Omari' ability to engage in meaningful activities with active inclusion of the L hand; he continues to be limited by pain/discomfort. It has been recommended he follows-up w/ his physician given that education has been completed on conservative therapeutic measures to address pain/ discomfort and he reports actively utilizing these strategies. Home Exercise Program Please refer to treatment section of note for specific details. - Plan Therapy Recommendations Continue with Current Program, Advance per Rehabilitation Protocol
--- NOTE | 2020-03-26 12:10 | OT.OP.TRT ---
Visit Care Team Role Provider Type DESMOND Burnett Primary Care Provider Non-Staff Specialty: Medical Address: [address] [facility], [address], [place], [address] Email: Fabrice Becerra MD Attending Provider Non-Staff Referring Provider Specialty: Medical Address: [address] [place] [address], [id number] Email: Occupational Therapy Treatment Note OT Outpatient Treatment Note - Adult Start: 12/07/19 12:27 Freq: Status: Active Protocol: Document 03/26/20 11:47 AMS (Rec: 03/26/20 12:10 AMS [id number]) OT Outpatient Adult Treatment Note Session Time Visit Start Time 08:30 Visit Stop Time 09:15 Total Visit Minutes 45 Visit Information Visit Number 12/15 Plan of Care Dates 02/29/20-05/23/20 Setting Treatment Setting Outpatient Care Visit Type Note Type Treatment Note General Information General Information Patient is a 54 year-old male referred to outpatient OT for L middle finger injury. Omari is R hand dominant; however, reportedly has relied more on his L hand secondary to R ulnar nerve injury that occurred while he was serving in [employer]. 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 PMH: significant for dislocation of L 3rd digit; failed response to x 2 corticosteroid injections for treatment of L 3rd digit trigger finger, thus, surgery was performed. (-) treatment following surgery. - Subjective Identification Type Name Identification Reconciled With Medical Record Observations I was using my saw for a hour before it . My hand is really sore from that. It just is really tight and hurts in that joint per Omari in re: 3rd MCPJ. Patient/Caregiver Compliance with Home Good Exercise Program - Objective Objective Measurements Please refer to below for progress towards established goals. 03/13/20= 0-80 degrees AROM PIPJ w/ MCP in neutral. = L 3rd digit = 0-73 degrees AROM PIPJ (increased AROM w/ MCP in flexion); 0-90 degrees AROM MCPJ. 12/26/19= 0-73 degrees AROM PIPJ; 0-90 degrees PROM PIPJ (pain-free passive ROM) 0-85 degrees AROM MCPJ Short Term Goals 1. Omari will present with increased ability to engage in meaningful activities with active incorporation of the left third digit, as evidenced by indication of 2 or less out of 10 on the Pain Assessment Grid. 03/13/20= 25% met 2. 0-90 degrees active flex at PIP joint of L 3rd digit. = GOAL UPGRADED 3. Omari will present with increased ability to maintain mental health professional on an object with inclusion of 3rd, 4th and 5th digits; this will be evidenced by Omari' ability to sustain grasp on arm bike hand x 8 minutes without complaints of pain/discomfort (shooting pain /discomfort w/ need to shake hand). 03/26/20= 50% met; x 7 minutes GOALS MET 0-90 degrees active flex MCPJ L 3rd digit. *MET 02/20/20 = 0- 90 degrees 0-80 degrees active flex at PIP joint of L 3rd digit. * MET 03/13/20= 0-80 degrees active flex PIPJ L 3rd digit. Senior Living Goals 1. Omari will be modified independent with execution of left third digit HEP utilizing provided written and visual instructions from therapist. = 50% met - Treatment 1 Descriptor Ultrasound. 20% duty cycle. 2. 0 w/cm2 to volar surface L hand to address inflammation/ swelling x 10 min. Skin intact pre- and post- treatment. Exercises 4 Descriptor Manual therapy by therapist. Addressed ROM limitations of joints of 3rd digit of the L hand. 3 Descriptor Strengthening of digits/grasp. 3.3# spherical ball. 4.4# spherical ball. Toss & catch L hand. 2 x 10 seated w/ each weight. N/A 03/26/20 4.4# spherical ball. Focus on grasp/release L hand w/ 3rd, 4th and 5th digits actively engaged. 2 x 10. 2# longitudinal weight/velcro weights. Sustained mental health professional 3 sec. 2 x 5 sec. 3rd, 4th, and 5th digits L hand. 1.5# digiflex. 1 x 5. Discomfort of 3rd digit; thus, focus on 4th and 5th digits of L hand. 2 Descriptor Neuroretraining. 1 Descriptor HEP/POC. Reviewed current home exercise program; reviewed strengthening of 2nd digit and 3rd digit away from ulnar drift pattern utilizing theraputty (has blue and green theraputty for use in the home). Reviewed distal UE stretches; joint protection education was completed relative to stretching 3rd digit (discussed use of ball as an alternative to wall versus passive stretch). Recommended continuing to utilize weighted ball for strengthening of ulnar side of hand; recommended continuation of neuro re- training and maintaining available ROM. Omari denied questions. - Assessment Assessment of Improvement Omari has follow-up w/ his PCP on . Omari reports limitations secondary to pain/ discomfort primarily of the 3rd digit of the left hand. He responded positively to ultrasound and manual therapy for ROM to the joints of the 3rd digit. He continues to present with left hand weakness which leads to altering of grasp of various sized objects. Review of HEP completed with focus on joint protection primarily with stretching of 3rd digit into extension. (+) carry-over of home recommendations. Continued outpatient OT is recommended at this time to maximize Omari' ability to engage in meaningful activities with active inclusion of the L hand; he continues to be limited by pain/discomfort. It has been recommended he follows-up w/ his physician given that education has been completed on conservative therapeutic measures to address pain/ discomfort and he reports actively utilizing these strategies. Home Exercise Program Please refer to treatment section of note for specific details. - Plan Therapy Recommendations Continue with Current Program, Advance per Rehabilitation Protocol
--- NOTE | 2020-04-02 11:51 | OT.OP.TRT ---
Visit Care Team Role Provider Type DESMOND Burnett Primary Care Provider Non-Staff Specialty: Medical Address: [address] [facility], [address], [place], [address] Email: Fabrice Becerra MD Attending Provider Non-Staff Referring Provider Specialty: Medical Address: [address] [place] [address], [place], [address] Email: Occupational Therapy Treatment Note OT Outpatient Treatment Note - Adult Start: 12/07/19 12:27 Freq: Status: Active Protocol: Document 04/02/20 09:27 AMS (Rec: 04/02/20 09:31 AMS [id number]) OT Outpatient Adult Treatment Note Session Time Visit Start Time 08:30 Visit Stop Time 09:17 Total Visit Minutes 47 Visit Information Visit Number 01/14 Plan of Care Dates 02/29/20-05/23/20 Setting Treatment Setting Outpatient Care Visit Type Note Type Treatment Note General Information General Information Patient is a 54 year-old male referred to outpatient OT for L middle finger injury. Omari is R hand dominant; however, reportedly has relied more on his L hand secondary to R ulnar nerve injury that occurred while he was serving in [employer]. 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 PMH: significant for dislocation of L 3rd digit; failed response to x 2 corticosteroid injections for treatment of L 3rd digit trigger finger, thus, surgery was performed. (-) treatment following surgery. - Subjective Identification Type Name Identification Reconciled With Medical Record Observations I feel that there is still weakness. I wish the pain would go away. It is always there but then I get the shooting pain which makes have to let go per Omari. I hurt this ankle per Omari. Patient/Caregiver Compliance with Home Excellent Exercise Program - Objective Objective Measurements Please refer to below for progress towards established goals. 03/13/20= 0-80 degrees AROM PIPJ w/ MCP in neutral. = L 3rd digit = 0-73 degrees AROM PIPJ (increased AROM w/ MCP in flexion); 0-90 degrees AROM MCPJ. 12/26/19= 0-73 degrees AROM PIPJ; 0-90 degrees PROM PIPJ (pain-free passive ROM) 0-85 degrees AROM MCPJ Short Term Goals 1. Omari will present with increased ability to engage in meaningful activities with active incorporation of the left third digit, as evidenced by indication of 2 or less out of 10 on the Pain Assessment Grid. 03/13/20= 25% met 2. 0-90 degrees active flex at PIP joint of L 3rd digit. = 25% met 3. 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 04/02/20= 75% met; x 8 min. However c/o pain/ discomfort in hand & wanting to let go GOALS MET 0-90 degrees active flex MCPJ L 3rd digit. *MET 02/20/20 = 0- 90 degrees 0-80 degrees active flex at PIP joint of L 3rd digit. * MET 03/13/20= 0-80 degrees active flex PIPJ L 3rd digit. Longterm Goals 1. Omari will be modified independent with execution of left third digit HEP utilizing provided written and visual instructions from therapist. = 50% met - Treatment 1 Descriptor Ultrasound. 20% duty cycle. 2. 0 w/cm2 to volar surface L hand to address inflammation/ swelling x 10 min. Skin intact pre- and post- treatment. Exercises 6 Descriptor Finger flex. TB #3. 1x10. Finger ext combined w/ digit ext. TB #2. 1x10. Finger abd. TB #1. 1x5. 5 Descriptor UEB x 8 minutes 4 Descriptor Manual therapy by therapist. Addressed ROM limitations of joints of 3rd digit of the L hand. 3 Descriptor Strengthening of digits/grasp. 5.5# spherical ball. Toss & catch L hand. 2 x 10 seated w/ each weight. N/A 03/26/20 4.4# spherical ball. Focus on grasp/release L hand w/ 3rd, 4th and 5th digits actively engaged. 2 x 10. 2# longitudinal weight/velcro weights. Sustained water service supervisor 3 sec. 2 x 5 sec. 3rd, 4th, and 5th digits L hand. 1.5# digiflex. 1 x 5. Discomfort of 3rd digit; thus, focus on 4th and 5th digits of L hand. 2 Descriptor Neuroretraining. 1 Descriptor HEP/POC. Reviewed current home exercise program. Provided extra firm alfred theraputty for home use. Education re: importance of monitoring joint alignment. Provided w/ TB# 1, #2, and #3 to utilize with upgraded finger strengthening exercises (finger flex, finger ext, and finger abd). Discussed modifications to support ability to complete exercises (tying TB around table). Omari denied questions . - Assessment Assessment of Improvement Omari has follow-up w/ PCP on . Per outpatient clinic licensed insurance agent, Omari only has 2 visits left based on the 'hard date' of insurance auth and that a new prescription would be needed by his PCP to extend services past the date. special education curriculum specialist indicated that she conveyed this information to Omari. Advanced strengthening exercises in treatment session and for home carry-over. (+) carry-over of home recommendations. Continued outpatient OT is recommended at this time to maximize Omari' ability to engage in meaningful activities with active inclusion of the L hand; he continues to be limited by pain/discomfort. It has been recommended he follows-up w/ his physician given that education has been completed on conservative therapeutic measures to address pain/ discomfort and he reports actively utilizing these strategies. Home Exercise Program Please refer to treatment section of note for specific details. - Plan Therapy Recommendations Continue with Current Program, Advance per Rehabilitation Protocol Additional Therapy Recommendations Adjust based on MD feedback
--- NOTE | 2020-04-09 12:39 | OT.OP.TRT ---
Visit Care Team Role Provider Type DESMOND Burnett Primary Care Provider Non-Staff Specialty: Medical Address: [address] [facility], [address], [place], [address] Email: Fabrice Becerra MD Attending Provider Non-Staff Referring Provider Specialty: Medical Address: [address] [place] [address], [place], [address] Email: Occupational Therapy Treatment Note OT Outpatient Treatment Note - Adult Start: 12/07/19 12:27 Freq: Status: Active Protocol: Document 04/09/20 12:23 AMS (Rec: 04/09/20 12:39 AMS [id number]) OT Outpatient Adult Treatment Note Session Time Visit Start Time 08:30 Visit Stop Time 09:15 Total Visit Minutes 45 Visit Information Visit Number 02/14 Plan of Care Dates 02/29/20-05/23/20 Setting Treatment Setting Outpatient Care Visit Type Note Type Treatment Note General Information General Information Patient is a 54 year-old male referred to outpatient OT for L middle finger injury. Omari is R hand dominant; however, reportedly has relied more on his L hand secondary to R ulnar nerve injury that occurred while he was serving in [employer]. 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 PMH: significant for dislocation of L 3rd digit; failed response to x 2 corticosteroid injections for treatment of L 3rd digit trigger finger, thus, surgery was performed. (-) treatment following surgery. - Subjective Identification Type Name Identification Reconciled With Medical Record Observations I think I overworked this hand on Thursday. I did some sawing, used a crank, and did lots of other odds and ends. Yesterday I just rested and used ice for the hand. I woke up and it was really stiff this morning. It is really sore in this joint [3rd MCPJ] per Omari. My doctor wanted me to do the 5 visits and then he was going to make his rating then for this hand. He suggested anti-vibration tape and anti-vibration gloves per Omari. Patient/Caregiver Compliance with Home Excellent Exercise Program - Objective Objective Measurements Please refer to below for progress towards established goals. 03/13/20= 0-80 degrees AROM PIPJ w/ MCP in neutral. = L 3rd digit = 0-73 degrees AROM PIPJ (increased AROM w/ MCP in flexion); 0-90 degrees AROM MCPJ. 12/26/19= 0-73 degrees AROM PIPJ; 0-90 degrees PROM PIPJ (pain-free passive ROM) 0-85 degrees AROM MCPJ Short Term Goals 1. Omari will present with increased ability to engage in meaningful activities with active incorporation of the left third digit, as evidenced by indication of 2 or less out of 10 on the Pain Assessment Grid. 03/13/20= 25% met 2. 0-90 degrees active flex at PIP joint of L 3rd digit. = 25% met 3. 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 04/09/20= 75% met; x 8 min. However c/o pain/ discomfort in hand & wanting to let go GOALS MET 0-90 degrees active flex MCPJ L 3rd digit. *MET 02/20/20 = 0- 90 degrees 0-80 degrees active flex at PIP joint of L 3rd digit. * MET 03/13/20= 0-80 degrees active flex PIPJ L 3rd digit. Long-Term Goals 1. Omari will be modified independent with execution of left third digit HEP utilizing provided written and visual instructions from therapist. = 50% met - Treatment 2 Descriptor Addressed tightness of 3rd digit. 1 Descriptor Ultrasound. 20% duty cycle. 2. 0 w/cm2 to volar surface L hand to address inflammation/ swelling x 8 min. Skin intact pre- and post- treatment. Exercises 6 Descriptor Finger flex. TB #3. 1x10. Finger ext combined w/ digit ext. TB #2. 1x10. Finger abd. TB #1. 1x5. 5 Descriptor UEB x 6 min 30 sec 3 Descriptor Strengthening of digits/grasp. 5.5# spherical ball. Toss & catch L hand off of rebound trampoline. 2x10. 5.5# spherical ball. Toss & catch L hand w/ wrist in ext. 1 x 10. N/A 03/26/20 4.4# spherical ball. Focus on grasp/release L hand w/ 3rd, 4th and 5th digits actively engaged. 2 x 10. 2# longitudinal weight/velcro weights. 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 2 x 5 sec. 3rd, 4th, and 5th digits L hand. 1.5# digiflex. 1 x 5. Discomfort of 3rd digit; thus, focus on 4th and 5th digits of L hand. 2 Descriptor Neuroretraining. 1 Descriptor HEP/POC. Reviewed current HEP/ POC. Requested that Omari complete Consent for Exchange of Information; faxed PCP to request records/documentation pertinent to the L hand. Recommended following PCP's for antivibration AE that could be used to support function; discussed discomfort of the thumb may be related to weakness of 3rd, 4th, and 5th digits (compensatory pattern). Reviewed basic joint protection principles, including avoidance of tight therapist radiation, use of built-up tools/ items, use of anti-vibration gloves and avoidance of sustained postures of the hand . It is important to note however, this is the area that needs to be improved to support ability to execute meaningful tasks. Omari denied questions. - Assessment Assessment of Improvement Per MD Omari would like for him to finish out the 5 visits prior to making a determination of rating of hand. Recommended using anti- vibration gloves as recommended by physician, as well as trialing antivibration tape to determine if this provides relief/increases tolerance for vibration based tasks. Decreased tolerance for UEB on this treatment date relative to time tolerated compared to previous treatment session (x8 minutes). Unable to progress strengthening exercises on this treatment date. Discomfort reported of L thumb which may be related to trying to compensate w/ manufacturing job titles for weakness of 3, 4, and 5th digits of the L hand. Continued outpatient OT is recommended at this time to maximize Omari' ability to engage in meaningful activities with active inclusion of the L hand; he continues to be limited by pain/discomfort. Home Exercise Program Please refer to treatment section of note for specific details. - Plan Therapy Recommendations Continue with Current Program, Advance per Rehabilitation Protocol Additional Therapy Recommendations Contact referring physician; follow-up re: concerns
--- NOTE | 2020-04-12 11:47 | OT.OP.TRT ---
Visit Care Team Role Provider Type DESMOND Burnett Primary Care Provider Non-Staff Specialty: Medical Address: [address] [facility], [address], [place], [address] Email: Fabrice Becerra MD Attending Provider Non-Staff Referring Provider Specialty: Medical Address: [address] [place] [address], [address] Email: Occupational Therapy Treatment Note OT Outpatient Treatment Note - Adult Start: 12/07/19 12:27 Freq: Status: Active Protocol: Document 04/12/20 11:44 AMS (Rec: 04/12/20 11:47 AMS [id number]) OT Outpatient Adult Treatment Note Visit Type Note Type Administrative Note - Subjective Observations Therapist re-faxed PCP to request copies of pertinent medical records related to L hand/distal UE recommendations . Therapist to follow-up as appropriate. - - - -
--- NOTE | 2020-05-01 15:30 | OT.OP.TRT ---
Visit Care Team Role Provider Type DESMOND Burnett Primary Care Provider Non-Staff Specialty: Medical Address: [address] [facility], [address], [place], [address] Email: Fabrice Becerra MD Attending Provider Non-Staff Referring Provider Specialty: Medical Address: [address] [place] [address], [place], [address] Email: Occupational Therapy Treatment Note OT Outpatient Treatment Note - Adult Start: 12/07/19 12:27 Freq: Status: Active Protocol: Document 05/01/20 15:30 AMS (Rec: 05/02/20 15:16 AMS [id number]) OT Outpatient Adult Treatment Note Session Time Visit Start Time 08:30 Visit Stop Time 09:05 Total Visit Minutes 35 Visit Information Visit Number 03/17 Plan of Care Dates 02/29/20-05/23/20 Setting Treatment Setting Outpatient Care Visit Type Note Type Treatment Note General Information General Information Patient is a 54 year-old male referred to outpatient OT for L middle finger injury. Omari is R hand dominant; however, reportedly has relied more on his L hand secondary to R ulnar nerve injury that occurred while he was serving in [employer]. 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 PMH: significant for dislocation of L 3rd digit; failed response to x 2 corticosteroid injections for treatment of L 3rd digit trigger finger, thus, surgery was performed. (-) treatment following surgery. - Subjective Identification Type Name Identification Reconciled With Medical Record Observations Omari informed therapist at time of treatment session that it would have to be shortened d/t conflicting appointment at 9:00 a.m. w/ physician. Omari reported that he had ' not yet ordered the vibration gloves or tried using the antivibration tape'. He reported that him and his had ordered a 'crab instant potato processor' for their boat. Omari reported that he sees his physician on May 16. Patient/Caregiver Compliance with Home Excellent Exercise Program - Objective Objective Measurements Please refer to below for progress towards established goals. 03/13/20= 0-80 degrees AROM PIPJ w/ MCP in neutral. = L 3rd digit = 0-73 degrees AROM PIPJ (increased AROM w/ MCP in flexion); 0-90 degrees AROM MCPJ. Omari completed Pain Assessment Grid ; it was placed in paper chart . 12/26/19= 0-73 degrees AROM PIPJ; 0-90 degrees PROM PIPJ (pain-free passive ROM) 0-85 degrees AROM MCPJ Short Term Goals 1. Omari will present with increased ability to engage in meaningful activities with active incorporation of the left third digit, as evidenced by indication of 2 or less out of 10 on the Pain Assessment Grid. 05/01/20= Pain Assessment Grid completed ; pain was indicated volar/ dorsal surfaces of 3rd MCPJ. 2 out of 10 on pain scale indicated for 'ALWAYS'; 3 out of 10 on pain scale indicated for 'DRIVING'; 4 out of 10 on pain scale indicated with ' WORKING'; 6 out of 10 on pain scale indicated with ' VIBRATION'; 7 out of 10 on pain scale indicated when ' WAKING UP' 2. 0-90 degrees active flex at PIP joint of L 3rd digit. 05/01/20= 75% met; 0-87 degrees active flex at PIPJ of L 3rd digit 3. 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 05/01/20= 75% met GOALS MET 0-90 degrees active flex MCPJ L 3rd digit. *MET 02/20/20 = 0- 90 degrees 0-80 degrees active flex at PIP joint of L 3rd digit. * MET 03/13/20= 0-80 degrees active flex PIPJ L 3rd digit. Prison Goals 1. Omari will be modified independent with execution of left third digit HEP utilizing provided written and visual instructions from therapist. 05/01/20 = mod I w/ HEP established as of this date - Treatment 2 Descriptor Addressed tightness of 3rd digit. Exercises 7 Descriptor ROM measurements taken; Pain Assessment Grid completed 1 Descriptor HEP/POC. Reviewed current HEP/ POC. Provided TB #1 for alternative option for strengthening of digits/hand. - Assessment Assessment of Improvement According to outpatient insurance biller, Omari has exhausted his insurance benefit. Thus, outpatient OT needs to be discontinued as of 05/01/20 appointment. Per recommendations from outpatient clinic insurance biller, therapist to keep case open for 30 days and to re-assess as deemed medically necessary by referring physician. In summary, Omari has made progress since time of initial evaluation relative to ROM of the 3rd digit, neuro re-training, and independence with overseeing home exercise program. This is evidenced by Omari' meeting short term goals, awareness/ understanding of joint protection principles, and therapist's ability to advance therapeutic activities/home recommendations. At this time, Omari shows puckering of the palmar area predominantly of the 4th digit into flexion which may have occurred secondary to residual scar tissue from trigger finger release of the L 3rd digit. He is also presenting w/ minor ulnar drift which has been addressed w/ stretches, education, strengthening, and scar tissue mobilization. Omari demonstrates tightness into flexion of the digits. Despite progress, Omari continues to present with pain that limits his day-to-day life and ability to actively incorporate the L hand. He also struggles with managing large loads and this suggests that he would likely have difficulty managing heavy equipment; it is IMPORTANT TO NOTE that therapist was unable to formally assess his management of heavy equipment. Thus, patient may benefit from a tailored WORK HARDENING /WORK CONDITIONING program. - Plan Additional Therapy Recommendations Place on hold for 30 days per feedback from outpt insurance biller
--- NOTE | 2020-07-11 11:26 | OT.OP.DC ---
Visit Care Team Role Provider Type DESMOND Burnett Primary Care Provider Non-Staff Address: [address] [place] [address], [id number], [place], [address] Email: Fabrice Becerra MD Attending Provider Non-Staff Referring Provider Address: [facility] [place] [address], [address] Email: OT Outpatient OT Outpatient Adult Evaluation Start: 12/07/19 12:27 Freq: Status: Active Protocol: Document 12/07/19 16:51 AMS (Rec: 12/07/19 17:21 AMS [id number]) General Information Session Time Visit Start Time 12:30 Visit Stop Time 13:15 Total Visit Minutes 45 Visit Information Visit Number 07/[id number] Plan of Care Dates 12/07/19-02/29/20 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 -25 degrees flex at L 3rd DIPJ at rest; -10 degrees flex w/ PROM . Dynamometer II Funeral Director/Embalmer Strength : Avg 55.33# of force w/ L washer repairman (> 1 SD below the mean); avg 67.67# of force w/ R washer repairman (> 1 SD below the mean). 3 trials were performed. Norms for 55-59 y.o. males = 101.1 + /- 26.7 # of force R washer repairman; 83. 2 +/- 23.4 # of force L washer repairman). Pain Assessment Grid completed and was placed in paper chart. Treatment Treatment Education re: use of heat prior to execution of ROM exercises. Instructed in ROM exercises. Short Term Goals Short Term Goals 1. Omari will present with increased ability to engage in meaningful activities with active incorporation of the left third digit, as evidenced by indication of 2 or less out of 10 on the Pain Assessment Grid. 2. 0-80 degrees active flex at PIP joint of L 3rd digit. 3. 0-90 degrees active flex at MCP joint of L 3rd digit. Group Home Goals Pad Cutter Goals 1. Omari will be modified independent with execution of left third digit HEP utilizing provided written and visual instructions from therapist. Assessment/Plan Assessment Treatment Assessment Patient is a 54 year-old male referred to outpatient OT for L middle finger injury. Omari is R hand dominant; however, reportedly has relied more on his L hand secondary to R ulnar nerve injury that occurred while he was serving in [employer]. 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 PMH: significant for dislocation of L 3rd digit; failed response to x 2 corticosteroid injections for treatment of L 3rd digit trigger finger, thus, surgery was performed. (-) treatment following surgery. Patient goals: increase strength of the L hand/L 3rd digit; reduce pain/discomfort; increase ability to complete heavy work tasks with the left hand with active incorporation of the L 3rd digit. Evaluation findings: Decreased success and ability to engage in meaningful activities with active incorporation of the L 3rd digit; L 3rd digit pain; impaired ROM of the L 3rd digit; decreased bilateral washer repairman strength. Outpatient OT is recommended to address these areas in order to maximize the patient' s ability to successfully engage in meaningful activities with active incorporation of the left 3rd digit/left hand. Plan Comment 12 weeks Treatment Frequency Once a Week Therapeutic Contents Active Range of Motion, Adaptive Equipment Education, Client Education,Home Exercise Program,Joint Protection, Manual Therapy,Education, Neurodevelopment Treatment, Neuromuscular Re-Education, Self-Care,Splinting,Stretching /Flexibility Activities, Therapeutic Activities, Therapeutic Exercises, Modalities Types of Modalities Contrast Bath,E-Stim, Functional Stimulation (FES), Ice Massage,Ultrasound Additional Types of Modalities Heat/Paraffin bath Patient Instruction Home Exercise Program,Plan of Care,Questions/Concerns Sensory Assessment Sensory Profile2 Functional Wrist/Hand Scan Hand Side OT Outpatient Treatment Note - Adult Start: 12/07/19 12:27 Freq: Status: Active Protocol: Document 07/11/20 11:23 AMS (Rec: 07/11/20 11:26 [facility] [id number]) OT Outpatient Adult Treatment Note Visit Information Visit Number [id number] Plan of Care Dates 02/29/20-05/23/20 Setting Treatment Setting Outpatient Care Visit Type Note Type Discharge Summary - Subjective Observations Patient has not been seen in the outpatient clinic since and POC on . Thus, recommend that patient be d/c from outpatient OT with therapist re- evaluating as deemed appropriate by PCP. - Objective Objective Measurements Please refer to below for progress towards established goals. 03/13/20= 0-80 degrees AROM PIPJ w/ MCP in neutral. = L 3rd digit = 0-73 degrees AROM PIPJ (increased AROM w/ MCP in flexion); 0-90 degrees AROM MCPJ. Omari completed Pain Assessment Grid ; it was placed in paper chart . 12/26/19= 0-73 degrees AROM PIPJ; 0-90 degrees PROM PIPJ (pain-free passive ROM) 0-85 degrees AROM MCPJ Short Term Goals GOALS MET 0-90 degrees active flex MCPJ L 3rd digit. *MET 02/20/20 = 0- 90 degrees 0-80 degrees active flex at PIP joint of L 3rd digit. * MET 03/13/20= 0-80 degrees active flex PIPJ L 3rd digit. GOALS D/C 1. Omari will present with increased ability to engage in meaningful activities with active incorporation of the left third digit, as evidenced by indication of 2 or less out of 10 on the Pain Assessment Grid. 05/01/20= Pain Assessment Grid completed ; pain was indicated volar/ dorsal surfaces of 3rd MCPJ. 2 out of 10 on pain scale indicated for 'ALWAYS'; 3 out of 10 on pain scale indicated for 'DRIVING'; 4 out of 10 on pain scale indicated with ' WORKING'; 6 out of 10 on pain scale indicated with ' VIBRATION'; 7 out of 10 on pain scale indicated when ' WAKING UP' 2. 0-90 degrees active flex at PIP joint of L 3rd digit. 05/01/20= 75% met; 0-87 degrees active flex at PIPJ of L 3rd digit 3. Omari will present with increased ability to maintain washer repairman on an object with inclusion of 3rd, 4th and 5th digits; this will be evidenced by Omari' ability to sustain grasp on arm bike hand x 8 minutes without complaints of pain/discomfort (shooting pain /discomfort w/ need to shake hand). 05/01/20= 75% met Group Home Goals Omari will be modified independent with execution of left third digit HEP utilizing provided written and visual instructions from therapist. 05/01/20 = mod I w/ HEP established as of this date - - Assessment Assessment of Improvement Patient has not been seen in the outpatient clinic since and POC on . Thus, recommend that patient be d/c from outpatient OT with therapist re- evaluating as deemed appropriate by PCP. - Plan Therapy Recommendations Discharge from Occupational Therapy
== END 2020-07-13 13:29 ==
LOC: OT 08:30
PROVIDERS: PCP Nurse Practitioner Family; Referring Provider Preventive Medicine Occupational Medicine; Visit Provider Preventive Medicine Occupational Medicine
DX: S63.613A Unspecified sprain of left middle finger, initial encounter (principal); M65.332 Trigger finger, left middle finger
CPT/HCPCS: 97035; 97110; 97112; 97140; 97165

== ENCOUNTER 2022-08-01 10:03 | Emergency (ER) | payer OTHER, SELFPAY ==
[2022-08-01 10:19] VITALS: BP 154/92; PULSE 74; RESP 18; TEMP 36.7; O2SAT 97; BMI 29.4
--- NOTE | 2022-08-01 10:24 | DI.RAD.S_ITS ---
PROCEDURE: XR ELBOW RT MIN 3V INDICATIONS: elbow pain TECHNIQUE: 3 views of the elbow were acquired. COMPARISON: None. FINDINGS: Bones: No fractures or dislocations. No suspicious bony lesions. There is a small olecranon enthesophyte. Soft tissues: No elbow joint effusion. No suspicious soft tissue calcifications. IMPRESSION: No acute radiographic findings. If pain persists, followup imaging in 5-7 days is recommended to exclude occult fracture. Dictated by: Gilma Jenkins M.D. on 08/01/2022 at 10:53 Approved by: Gilma Jenkins M.D. on 08/01/2022 at 10:55
[2022-08-01] MEDS: OXYCODONE/ACETAMINOPHEN 5/325 TABLET 1 TAB PO (12:21)
[2022-08-01] MEDS: KETOROLAC 30 MG/ML VIAL IM (12:21)
[2022-08-01] MEDS: predniSONE 20 MG TABLET 40 MG PO (12:21)
[2022-08-01 12:33] VITALS: BP 149/88; PULSE 69; RESP 18; O2SAT 95
--- NOTE | 2022-08-01 13:12 | ED_ITS ---
HPI - Extremity Injury (Upper) General Chief Complaint: Extremity Injury, Upper Stated Complaint: right elbow cant move arm T-2 getting worse Time Seen by Provider: 08/01/22 12:04 Source: patient Mode of arrival: Ambulatory History of Present Illness HPI narrative: This is a 56-year-old male who presents to the emergency department complaining of right elbow pain after he was working on jazmin in his house 3 days ago. Patient is right-hand dominant, states this is his hammer hand, states that it hurt at the end of that day but then got worse over the last 3 days. States that his pain is a 10 out 10 at times and is exacerbated by movement of his wrist. States that the has pain that goes above and below on the lateral aspect. Denies numbness or tingling, pain, denies any traumatic injury. Has not had this symptom before, denies history of gout. MD complaint: injury to: right and elbow Related Data Previous Rx's Medication Instructions Recorded ibuprofen 800 mg tablet 800 mg PO Q8H PRN pain #20 tabs 08/01/22 oxycodone-acetaminophen 5 mg-325 1 tab PO Q8H PRN pain #10 tabs 08/01/22 mg tablet (Percocet) pantoprazole 20 mg tablet,delayed 20 mg PO DAILY #7 tabs 08/01/22 release (Protonix) prednisone 20 mg tablet 20 mg PO DAILY #4 tabs 08/01/22 Allergies Allergy/AdvReac Type Severity Reaction Status Date / Time INGREDIENT: NKDA - NO KNOWN Allergy Unknown Uncoded 10/14/17 11:54 DRUG ALLERGIES Review of Systems Review of Systems ROS Unobtainable: All systems reviewed & are unremarkable except as noted in HPI and below Patient History Social History Smoking Status: Never smoker Smoking Status: Never smoker alcohol intake frequency: a few times a week Alcohol type: beer Substance Use Type: does not use Exam Narrative Exam Narrative: Reviewed vitals signs and nursing notes. General: cooperative, comfortable, in no acute distress, well groomed MSK: moves all extremities, neurovascularly intact, no weakness, normal tone, patient has tenderness over the lateral epicondyle of the right elbow, proximal wrist extensor tenderness to palpation, he had difficulty with extension of his elbow with pain and with resisted wrist extension. Patient has pain with wrist flexion and full extension as well. Radial and ulnar pulses are strong and palpable, brisk cap refill to fingertips, without sensation or mobility deficit otherwise. Skin: brisk capillary refill, without pallor or erythema Neuro: normal speech and cognition, A&O x3, ambulatory, clear speech Psych: mental status is grossly normal, congruent mood, normal affect, pleasant and cooperative Initial Vital Signs Initial Vital Signs: Vital Signs Temperature 98.0 F 08/01/22 10:19 Pulse Rate 74 08/01/22 10:19 Respiratory Rate 18 08/01/22 10:19 Blood Pressure 154/92 H 08/01/22 10:19 Pulse Oximetry 97 08/01/22 10:19 Oxygen Delivery Method 08/01/22 10:19 Course Orders Ordered: Discontinued Medications Ketorolac Tromethamine (Ketorolac 30 Mg/Ml Vial) 30 mg IM NOW ONE Stop: 08/01/22 12:14 Last Admin: 08/01/22 12:21 Dose: 30 mg Documented By: HERMELINDO Oxycodone/Acetaminophen (Oxycodone/Acetaminophen 5/325 Tablet) 1 tab PO NOW ONE Stop: 08/01/22 12:14 Last Admin: 08/01/22 12:21 Dose: 1 tab Documented By: HERMELINDO Prednisone (Prednisone 20 Mg Tablet) 40 mg PO NOW ONE Stop: 08/01/22 12:15 Last Admin: 08/01/22 12:21 Dose: 40 mg Documented By: HERMELINDO Vital Signs Vital signs: Vital Signs - 8 hr 08/01/22 10:19 08/01/22 12:33 Temperature 98.0 F Pulse Rate 74 69 Respiratory Rate 18 18 Blood Pressure 154/92 H 149/88 H Pulse Oximetry 97 95 Oxygen Delivery Method Room Air Room Air MDM - Extremity Injury (Upper) Imaging Data Extremity x-ray #1: Radiologist's Impression: PROCEDURE:? XR ELBOW RT MIN 3V ? INDICATIONS:? elbow pain ? TECHNIQUE:? 3 views of the elbow were acquired.? ? COMPARISON:? None. ? FINDINGS:? ? Bones:? No fractures or dislocations.? No suspicious bony lesions.? There is a small olecranon enthesophyte. ? Soft tissues:? No elbow joint effusion.? No suspicious soft tissue calcifications.? ? ? IMPRESSION:? No acute radiographic findings. If pain persists, followup imaging in 5-7 days is recommended to exclude occult fracture. ? ? Dictated by: Gilma Jenkins M.D. on 08/01/2022 at 10:53 ? ? Approved by: Gilma Jenkins M.D. on 08/01/2022 at 10:55 ? MDM Narrative Medical decision making narrative: Chief Complaint: Right elbow pain Differential diagnoses include but are not limited to: Lateral epicondylitis, medial epicondylitis, biceps tendinitis, bursitis, osteoarthritis, gout, fracture, ligamental/tendon injury I have reviewed the patient's vital signs and nursing notes as well as prior records if available. Independently reviewed imaging including: Right elbow x-ray negative for acute abnormality including without a joint effusion Independent consultations with: Patient has tenderness over the lateral epicondyle of the right elbow, mild edema, without fluctuance, or palpation of fluid, without sensation changes to his fingertips, radial and ulnar pulses are palpable, brisk cap refill to fingertips, without motor deficit other than difficult to fully extend . Patient has tenderness over the medial epicondyle, proximal wrist flexor tenderness to palpation, pain with wrist flexion and with passive wrist extension when the elbows and full extension. Discussed the patient should follow-up with orthopedics if his symptoms persist. Treated with steroids, anti-inflammatories, patient is without contraindication to do so, prescribed Protonix for the next 7 days while taking these medications and encouraged him to have food and water with his medications. He was provided a sling to rest his elbow, encouraged to reduce frequent movements of this arm over the next few days and continue to ice. Patient's symptoms improved over duration of stay with above-stated therapies. Social considerations that may affect disposition: Questions are addressed and there is agreement with the plan and for follow-up. Patient is appropriate for outpatient management. MIPS: This encounter doesn't have any diagnosis' associated with MIPS criteria. Discharge Plan Departure Patient Disposition: Home Clinical Impression: Epicondylitis, lateral Qualifiers: Laterality: right Qualified Code(s): M77.11 - Lateral epicondylitis, right elbow Instructions: Lateral Epicondylitis Activity Restrictions/Additional Instructions: *You have been diagnosed with lateral epicondylitis/tennis elbow. Please reduce the frequent movement by wearing a sling, icing, resting this arm and avoiding foreign for at least 1 week. Please follow-up with [facility] if you have progressive symptoms, numbness or tingling, if you have weakness in your hand. Come back to the emergency department if your pain is under control. Please take food with your medications, I prescribed you some Protonix to help prevent ulcer while your taking anti-inflammatories. Remember to take MiraLax daily while on opiate medication as it will cause constipation. Please stay hydrated, reduce your activity level with this arm and hopefully this heals quickly. *What to do: *Please continue to take your regular medications as directed. [ x] New medication prescriptions sent to your pharmacy: [ [facility]] [ ] New medication written as a paper prescription [ ] No new medications given *Please follow up with your primary care provider in 2-3 days, call for an appointment. Let them know you were seen in the Emergency Department and that we asked that you be seen for follow-up. We will electronically transmit a record of today's note if your PCP is in our system *If you do not have a primary care provider please contact [phone] to establish care with one of [facility] primary care providers. *Return to Emergency Department if you should have any new, worsening, or concerning symptoms, such as [fever greater than 101F, chills, worsening pain, persistent vomiting or other bothersome symptoms]. Prescriptions: New prednisone 20 mg tablet 20 mg PO DAILY Qty: 4 0RF ibuprofen 800 mg tablet 800 mg PO Q8H PRN (Reason: pain) Qty: 20 0RF Rx Instructions: Take with food and water pantoprazole [Protonix] 20 mg tablet,delayed release (DR/EC) 20 mg PO DAILY Qty: 7 0RF oxycodone-acetaminophen [Percocet] 5-325 mg tablet 1 tab PO Q8H PRN (Reason: pain) Qty: 10 0RF Referrals: [facility] [Provider Group] John Simeon ARNP [Primary Care Provider] - Stand Alone Forms: Patient Portal/API
== END 2022-08-01 12:34 | disposition home or self-care (01) ==
PROVIDERS: Emergency Provider Nurse Practitioner Critical Care Medicine; PCP Nurse Practitioner Family
DX: M77.11 Lateral epicondylitis, right elbow (principal)
CPT/HCPCS: 73080; 96372; 99283; J1885